=== PATIENT | male | born 1955 | race Caucasian/White ===

== ENCOUNTER 2020-10-10 16:14 | Inpatient (IN) | payer OTHER ==
[~2020-10-10] VITALS: Ht 180.3 cm; Wt 82.4 kg
--- NOTE | 2020-10-10 16:36 | NUR ---
PT AMBULATED TO ROOM FROM TRIAGE. PT STATED THAT HE WAS SEEN AT ON SUNDAY FOR DYSURIA AND BODY ACHES. DIAGNOSED WITH UTI AND GIVEN A PERSCRIPTION FOR CIPRO. PT WAS STILL EXPERIENCING SYMPTOMS AND GETTING UP TO URINATE EVERY 15-30 MINUTES SO HE CALLED MD THROUGH [facility] AND WAS ABX WAS CHANGED TO DOXYCYCLINE LAST NIGHT. TODAY PT STILL WAS NOT GETTING ANY RELIEF AND SPIKED A TEMPERATURE OF 102. PT DENIES ANY BLOOD IN URINE, BACK OR FLANK PAIN.
[2020-10-10 17:25] LABS: BASOPHILS % (AUTO) 0 % (0-1); EOSINOPHILS % (AUTO) 0 % (1-7); LYMPHOCYTES % (AUTO) 7 % (22-44); MEAN CORPUSCULAR HEMOGLOBIN 31.1 pg (27.5-34.5); MEAN PLATELET VOLUME 7.9 fL (7.4-10.4); MONOCYTES % (AUTO) 8 % (2-9); NEUTROPHILS % (AUTO) 85 % (42-75); PLATELET COUNT 168 x10^3/uL (130-400); RED BLOOD COUNT 5.14 x10^6/uL (4.38-5.82); RED CELL DISTRIBUTION WIDTH 13.5 % (9.4-14.8)
[2020-10-10 17:38] LABS: ALBUMIN 3.3 g/dL (3.4-5.0); ANION GAP 9 mmol/L (5-15); CALCIUM 8.6 mg/dL (8.5-10.1); CHLORIDE 105 mmol/L (98-107)
[2020-10-10 17:42] LABS: ALANINE AMINOTRANSFERASE 24 U/L (12-78); ALKALINE PHOSPHATASE 50 U/L (45-117); BILIRUBIN,TOTAL 0.8 mg/dL (0.2-1.0); CREATININE 1.31 mg/dL (0.7-1.3); TOTAL PROTEIN 7.1 g/dL (6.4-8.2)
--- NOTE | 2020-10-10 17:47 | NUR ---
PT RESTING IN GURNEY COMFORTABLY. WARM BLANKET PROVIDED. ALL NEEDS ADDRESSED. CALL LIGHT WITHIN REACH.
[2020-10-10 17:53] LABS: MICROSCOPIC INDICATED
--- NOTE | 2020-10-10 19:15 | NUR ---
IV STARTED, IVF INITIATED.
[2020-10-10] MEDS: PLEASE ENTER ALLERGIES MC SCH ×2 (19:30→22:20)
[2020-10-10] MEDS ORDERED: IBUPROFEN 200 MG TABLET PO ONE (19:30)
[2020-10-10] MEDS ORDERED: SODIUM CHLORIDE FLUSH 10ML SYR IVF ONE (19:30)
[2020-10-10] MEDS ORDERED: PIPERACILLIN/TAZO 3.375 GM in DEXTROSE 5% 50 ML IVPB ONE (19:30)
[2020-10-10] MEDS ORDERED: SODIUM CHLORIDE 0.9% 1,000ML IVBOLUS ONE (19:30)
[2020-10-10] MEDS ORDERED: SODIUM CHLORIDE FLUSH 10ML SYR IVF PRN (19:30)
[2020-10-10] MEDS ORDERED: IBUPROFEN 200 MG TABLET ONE (19:45)
--- NOTE | 2020-10-10 20:05 | NUR ---
REPORT GIVEN TO VITALIY ONTIVEROS
[2020-10-10] MEDS ORDERED: METF100P3 PO (20:40)
[2020-10-10] MEDS ORDERED: ATOR20TA86 PO (20:40)
[2020-10-10 21:32] VITALS: BP 113/74
[2020-10-10] MEDS: ATORVASTATIN 20 MG TABLET PO SCH (22:20)
[2020-10-10] MEDS ORDERED: PROMETHAZINE 25 MG/ML, 1ML IM PRN (22:30)
[2020-10-10] MEDS ORDERED: ONDANSETRON ODT 4 MG PO PRN (22:30)
[2020-10-10] MEDS ORDERED: DOCUSATE 100 MG CAPSULE PO PRN (22:30)
[2020-10-10] MEDS ORDERED: ONDANSETRON 2MG/ML, 2ML IVPush PRN (22:30)
[2020-10-10] MEDS ORDERED: OXYcodone IR 5MG TABLET PO PRN (22:30)
[2020-10-10] MEDS ORDERED: hydrALAzine 20 MG/ML, 1ML IVPush PRN (22:30)
[2020-10-10] MEDS ORDERED: ACETAMINOPHEN 325 MG TABLET PO PRN (22:30)
[2020-10-10] MEDS ORDERED: BISACODYL 10 MG SUPP PR PRN (22:30)
[2020-10-10] MEDS ORDERED: POLYETHYLENE GLYCOL 17 GM PACKET PO PRN (22:30)
[2020-10-10] MEDS ORDERED: morphine SULFATE 10 MG/ML, 1ML IVPush PRN (22:30)
[2020-10-10] MEDS: SODIUM CHLORIDE 0.9% 1,000 ML IV SCH (22:43)
[2020-10-10] MEDS ORDERED: PHENAZOPYRIDINE 200 MG TABLET ONE (22:53)
[2020-10-10] MEDS: PHENAZOPYRIDINE 100 MG TABLET PO PRN (22:55)
[2020-10-11] MEDS ORDERED: PEDS NS BOLUS IV.SOLN 20ML/KG IVBOLUS ONE (01:00)
[2020-10-11] MEDS ORDERED: SODIUM CHLORIDE 0.9%, 500ML IVBOLUS ONE (01:30)
[2020-10-11] MEDS: PIPERACILLIN/TAZO 3.375 GM in DEXTROSE 5% 50 ML IVPB SCH ×3 (03:07→20:35)
[2020-10-11 03:13] VITALS: BP 113/73
[2020-10-11 04:55] LABS: BASOPHILS % (AUTO) 0 % (0-1); EOSINOPHILS % (AUTO) 0 % (1-7); LYMPHOCYTES % (AUTO) 13 % (22-44); MEAN CORPUSCULAR HEMOGLOBIN 31.6 pg (27.5-34.5); MEAN CORPUSCULAR HGB CONC 33.6 g/dL (33.2-36.2); MEAN PLATELET VOLUME 7.9 fL (7.4-10.4); MONOCYTES % (AUTO) 10 % (2-9); NEUTROPHILS % (AUTO) 77 % (42-75); PLATELET COUNT 147 x10^3/uL (130-400); RED BLOOD COUNT 4.46 x10^6/uL (4.38-5.82); RED CELL DISTRIBUTION WIDTH 13.6 % (9.4-14.8)
[2020-10-11 04:57] LABS: ALBUMIN 2.8 g/dL (3.4-5.0); ANION GAP 5 mmol/L (5-15); CALCIUM 8.2 mg/dL (8.5-10.1); CHLORIDE 111 mmol/L (98-107)
[2020-10-11 05:10] LABS: ALANINE AMINOTRANSFERASE 22 U/L (12-78); ALKALINE PHOSPHATASE 41 U/L (45-117); BILIRUBIN,TOTAL 0.8 mg/dL (0.2-1.0); CHOL/HDL RATIO 2.2; CHOLESTEROL, TOTAL 121 mg/dL (140-239); CREATININE 1.24 mg/dL (0.7-1.3); HDL CHOL % 45 % (26-37); HDL CHOLESTEROL (DIRECT) 54 mg/dL (40-60); LDL CHOLESTEROL,CALCULATED 56 mg/dL (54-169); TRIGLYCERIDES 53 mg/dL (50-200); VLDL CHOLESTEROL 11 mg/dL (0-25)
[2020-10-11 06:24] VITALS: BP 127/83
[2020-10-11] MEDS: SODIUM CHLORIDE 0.9% 1,000 ML IV SCH (06:41)
[2020-10-11] MEDS: INSULIN LISPRO 100 UNITS/ML, PEN SQ-INSULIN SCH ×4 (07:45→20:26)
[2020-10-11] MEDS ORDERED: PHENAZOPYRIDINE 200 MG TABLET ONE ×2 (08:30→20:20)
[2020-10-11] MEDS: PHENAZOPYRIDINE 100 MG TABLET PO PRN ×2 (08:31→20:33)
[2020-10-11 12:30] VITALS: BP 117/76
[2020-10-11] MEDS: IBUPROFEN 200 MG TABLET PO PRN ×2 (13:17→20:33)
[2020-10-11 19:09] VITALS: BP 119/75
[2020-10-11] MEDS: ATORVASTATIN 20 MG TABLET PO SCH (20:33)
[2020-10-12 01:43] VITALS: BP 116/73
[2020-10-12] MEDS ORDERED: PHENAZOPYRIDINE 200 MG TABLET ONE ×4 (04:04→22:15)
[2020-10-12] MEDS: PIPERACILLIN/TAZO 3.375 GM in DEXTROSE 5% 50 ML IVPB SCH ×4 (04:06→22:16)
[2020-10-12] MEDS: PHENAZOPYRIDINE 100 MG TABLET PO PRN ×3 (04:06→22:17)
[2020-10-12] MEDS: IBUPROFEN 200 MG TABLET PO PRN ×2 (04:08→15:49)
[2020-10-12 06:21] VITALS: BP 113/70
[2020-10-12] MEDS: INSULIN LISPRO 100 UNITS/ML, PEN SQ-INSULIN SCH ×4 (07:00→20:08)
[2020-10-12] MEDS ORDERED: BUTALB/APAP/CAFFEINE 50MG/325MG/40MG PO PRN (10:00)
[2020-10-12] MEDS ORDERED: HEMORRHOIDAL SUPP.RECT PR PRN (10:00)
[2020-10-12 12:39] VITALS: BP 129/79
[2020-10-12 18:45] VITALS: BP 124/78
[2020-10-12] MEDS: ATORVASTATIN 20 MG TABLET PO SCH (20:06)
[2020-10-13 01:49] VITALS: BP 131/84
[2020-10-13] MEDS: IBUPROFEN 200 MG TABLET PO PRN (02:23)
[2020-10-13] MEDS ORDERED: PHENAZOPYRIDINE 200 MG TABLET ONE (06:09)
[2020-10-13] MEDS: PIPERACILLIN/TAZO 3.375 GM in DEXTROSE 5% 50 ML IVPB SCH (06:12)
[2020-10-13] MEDS: PHENAZOPYRIDINE 100 MG TABLET PO PRN (06:13)
[2020-10-13 06:28] VITALS: BP 122/79
[2020-10-13] MEDS: INSULIN LISPRO 100 UNITS/ML, PEN SQ-INSULIN SCH ×2 (07:00→11:00)
[2020-10-13] MEDS ORDERED: SULF1TAB24 PO (09:50)
[2020-10-13] MEDS ORDERED: ONDA4TAB7 PO (10:25)
[2020-10-13] MEDS ORDERED: OXYC5TAB98 PO (10:25)
[2020-10-13] MEDS ORDERED: PHEN-582 PO (10:25)
[2020-10-13] MEDS ORDERED: SULFAMETH./TRIMETHOPRIM DS 800MG/160MG TABLET PO ONE (10:30)
== END 2020-10-13 12:53 | disposition home or self-care (01) | DRG 871 ==
LOC: ED 19:35 → EDIP 19:58 → 4NW 20:14 → DCLOUNGE 10-13 12:48
PROVIDERS: ADMIT Internal Medicine; ATTEND Family Medicine
DX: A41.9 Sepsis, unspecified organism (principal); N17.0 Acute kidney failure with tubular necrosis; N39.0 Urinary tract infection, site not specified; N41.0 Acute prostatitis; K64.9 Unspecified hemorrhoids; N28.1 Cyst of kidney, acquired; F12.90 Cannabis use, unspecified, uncomplicated; E78.5 Hyperlipidemia, unspecified; E11.9 Type 2 diabetes mellitus without complications; K57.30 Diverticulosis of large intestine without perforation or abscess without bleeding; Z80.6 Family history of leukemia; Z87.891 Personal history of nicotine dependence
CPT/HCPCS: 36415; 74176; 80053; 80061; 81001; 82962; 83036; 83605; 83735; 84100; 84443; 85025; 87040; 87086; G0378; J2405; J2543; J7030